=== PATIENT | female | born 1970 | race Hispanic/Latino ===

== ENCOUNTER 2018-01-12 11:35 | Inpatient (IN) | payer BC, MEDICAID ==
[~2018-01-12] VITALS: Ht 157.5 cm; Wt 93.9 kg
[2018-01-12 12:24] LABS: BASOPHILS % (AUTO) 0.5 % (0.0-5.0); EOSINOPHILS % (AUTO) 0.6 % (0.0-8.0); HEMATOCRIT 33.1 % (36-48); LYMPHOCYTES % (AUTO) 9.5 % (21.0-51.0); MEAN CORPUSCULAR HEMOGLOBIN 24.9 pg (27.0-33.0); MEAN CORPUSCULAR HGB CONC 32.7 g/dL (32.0-36.0); MEAN CORPUSCULAR VOLUME 76.2 fL (79-99); MONOCYTES % (AUTO) 6.3 % (3.0-13.0); NEUTROPHILS % (AUTO) 83.1 % (40.0-77.0); PLATELET COUNT (AUTO) 214 K/uL (130-400); RED BLOOD CELL COUNT(AUTO) 4.34 MIL/uL (4.00-5.50); RED CELL DISTRIBUTION WIDTH 15.6 % (11.0-15.5); WHITE BLOOD COUNT (AUTO) 10.9 K/uL (4.8-10.8)
[2018-01-12 12:29] LABS: APPEARANCE,URINE Cloudy (CLEAR); BILIRUBIN,URINE Negative (NEGATIVE); COLOR,URINE Dark Yellow (YELLOW); GLUCOSE, URINE (UA) 250 mg/dL (NEGATIVE); KETONES,URINE Negative (NEGATIVE); LEUKOCYTE ESTERASE ,URINE Trace (NEGATIVE); NITRATE,URINE Negative (NEGATIVE); OCCULT BLOOD,URINE Negative (NEGATIVE); PROTEIN,URINE POS 1+ (NEGATIVE)
[2018-01-12 12:35] LABS: HCG,QUAL RESULT NEGATIVE (NEGATIVE)
[2018-01-12 12:36] LABS: AMPHET/METH SCREEN,URINE NEGATIVE (NEGATIVE); BARBITURATE SCREEN, URINE NEGATIVE (NEGATIVE); BENZODIAZEPINES SCREEN,URINE NEGATIVE (NEGATIVE); CANNABINOID SCREEN,URINE NEGATIVE (NEGATIVE); COCAINE SCREEN,URINE POSITIVE (NEGATIVE); CREATININE 0.7 mg/dL (0.5-1.5); OPIATE SCREEN,URINE NEGATIVE (NEGATIVE); PHENCYCLIDINE SCREEN,URINE NEGATIVE (NEGATIVE); POTASSIUM 3.5 mmol/L (3.5-5.1)
[2018-01-12 12:41] LABS: ALBUMIN 3.7 g/dL (3.5-5.0); BILIRUBIN,TOTAL 1.1 mg/dL (0.2-1.0); TOTAL PROTEIN, SERUM 7.9 g/dL (6.0-8.3)
[2018-01-12 12:50] LABS: BACTERIA,URINE Rare /HPF (None Seen); RBC,URINE 0-1 /HPF (0-1); SQUAMOUS EPITHELIAL CELL,UR Rare /HPF (0-2); WBC,URINE 0-1 /HPF (0-1)
[2018-01-12] MEDS ORDERED: SODIUM CHLORIDE 0.9% 1000ML 1,000 ML IV ONE (13:03)
[2018-01-12] MEDS ORDERED: DICYCLOMINE HCL 10 MG/ML 2ML AMP IM ONE (13:03)
[2018-01-12] MEDS ORDERED: IOHEXOL 350 MG/ML 100ML INFUS..BTL IV ONE (15:53)
[2018-01-12] MEDS ORDERED: ONDANSETRON HCL 4 MG/2 ML VIAL ONE (23:33)
[2018-01-12] MEDS ORDERED: ACETAMINOPHEN-CODEINE 300/30MG TAB ONE (23:33)
[2018-01-13] VITALS (7 sets, daily range): BP systolic 122–136; BP diastolic 59–76
[2018-01-13] MEDS ORDERED: PHARMACY COMMUNICATION MISC SCH (01:45)
[2018-01-13] MEDS ORDERED: SODIUM CHLORIDE 0.9% 10 ML VIAL IVP PRN (01:45)
[2018-01-13] MEDS ORDERED: ONDANSETRON HCL 4 MG/2 ML VIAL IVP PRN (01:45)
[2018-01-13 04:15] LABS: MEAN CORPUSCULAR HEMOGLOBIN 25.2 pg (27.0-33.0); MEAN CORPUSCULAR HGB CONC 33.1 g/dL (32.0-36.0); MEAN CORPUSCULAR VOLUME 76.1 fL (79-99); PLATELET COUNT (AUTO) 199 K/uL (130-400); RED BLOOD CELL COUNT(AUTO) 3.81 MIL/uL (4.00-5.50); RED CELL DISTRIBUTION WIDTH 15.1 % (11.0-15.5); WHITE BLOOD COUNT (AUTO) 6.5 K/uL (4.8-10.8)
[2018-01-13] MEDS ORDERED: LEVO200T10 PO (04:26)
[2018-01-13] MEDS ORDERED: ONDANSETRON HCL MDV 20ML 2 MG/ML VIAL IVP PRN (04:30)
[2018-01-13 04:34] LABS: BILIRUBIN,TOTAL 0.3 mg/dL (0.2-1.0); CREATININE 0.7 mg/dL (0.5-1.5); POTASSIUM 3.3 mmol/L (3.5-5.1); TOTAL PROTEIN, SERUM 6.7 g/dL (6.0-8.3)
[2018-01-13] MEDS ORDERED: MORPHINE SULFATE 2 MG/ML 1ML SYG IM PRN (10:45)
[2018-01-13] MEDS: ACETAMINOPHEN-CODEINE 300/30MG TAB PO PRN (10:54)
[2018-01-13] MEDS ORDERED: LACTULOSE 20 GM/30 ML UDCUP PO PRN (20:30)
[2018-01-14 04:53] VITALS: BP 123/64
[2018-01-14 07:49] VITALS: BP 125/74
[2018-01-14 11:22] VITALS: BP 139/64
[2018-01-14] MEDS ORDERED: PEG 3350/NA SULF,BICARB,CL/KCL 4000 ML SOLN PO SCH (13:00)
[2018-01-14] MEDS ORDERED: METOCLOPRAMIDE 10 MG TABLET PO SCH (14:00)
[2018-01-14 15:53] VITALS: BP 133/64
[2018-01-14] MEDS: LACTATED RINGERS 1000ML 1,000 ML IV SCH (18:00)
[2018-01-14 20:00] VITALS: BP 156/86
[2018-01-14] MEDS ORDERED: ZOLPIDEM TARTRATE 5 MG TAB PO SCH (21:00)
[2018-01-14 23:58] VITALS: BP 127/65
[2018-01-15] VITALS (25 sets, daily range): BP systolic 103–158; BP diastolic 53–83
[2018-01-15 04:34] LABS: BASOPHILS % (AUTO) 0.6 % (0.0-5.0); EOSINOPHILS % (AUTO) 5.3 % (0.0-8.0); HEMATOCRIT 27.2 % (36-48); LYMPHOCYTES % (AUTO) 34.2 % (21.0-51.0); MEAN CORPUSCULAR HEMOGLOBIN 25.1 pg (27.0-33.0); MEAN CORPUSCULAR HGB CONC 33.1 g/dL (32.0-36.0); MEAN CORPUSCULAR VOLUME 75.9 fL (79-99); MONOCYTES % (AUTO) 9.6 % (3.0-13.0); NEUTROPHILS % (AUTO) 50.3 % (40.0-77.0); PLATELET COUNT (AUTO) 223 K/uL (130-400); RED BLOOD CELL COUNT(AUTO) 3.58 MIL/uL (4.00-5.50); WHITE BLOOD COUNT (AUTO) 3.4 K/uL (4.8-10.8)
[2018-01-15 04:48] LABS: CREATININE 0.6 mg/dL (0.5-1.5); POTASSIUM 3.6 mmol/L (3.5-5.1)
[2018-01-15] MEDS: LACTATED RINGERS 1000ML 1,000 ML IV SCH ×3 (11:37→15:47)
[2018-01-15] MEDS ORDERED: GLYCOPYRROLATE 1 MG/5 ML SYRINGE ONE (12:57)
[2018-01-15] MEDS ORDERED: ROCURONIUM 10MG/1ML SYR 10 MG/ML ML ONE (12:57)
[2018-01-15] MEDS ORDERED: DEXAMETHASONE SOD PHOSPHATE 10MG/ML 1ML VIAL ONE (12:57)
[2018-01-15] MEDS ORDERED: LIDOCAINE PF 2% 5ML ABBOJECT ONE (12:57)
[2018-01-15] MEDS ORDERED: NEOSTIGMINE 5MG/5ML SYR IV ONE ×2 (12:57→15:33)
[2018-01-15] MEDS ORDERED: ONDANSETRON HCL 4 MG/2 ML VIAL ONE (12:57)
[2018-01-15] MEDS ORDERED: PROPOFOL 10 MG/ML 20ML VIAL IV ONE (12:57)
[2018-01-15] MEDS ORDERED: FAMOTIDINE/PF 20 MG/2 ML VIAL IV ONE (13:06)
[2018-01-15] MEDS ORDERED: KETAMINE 50MG/ML SYRINGE 50 MG/ML DISP.SYRIN IV ONE (13:07)
[2018-01-15] MEDS ORDERED: ALBUMIN (HUMAN) 5% 500 ML IV ONE (13:08)
[2018-01-15] MEDS ORDERED: MIDAZOLAM HCL 1 MG/ML 2ML VIAL ONE (13:15)
[2018-01-15] MEDS ORDERED: CEFAZOLIN SODIUM 1 GM VIAL ONE (13:24)
[2018-01-15] MEDS ORDERED: FENTANYL CITRATE PF 50 MCG/1 ML 2ML VIAL ONE (13:38)
[2018-01-15] MEDS ORDERED: NEOMY SULF/POLYMYXIN B SULFATE 1 ML AMPUL IR ONE (14:58)
[2018-01-15] MEDS ORDERED: SIMETHICONE 80 MG TAB.CHEW PO PRN (15:45)
[2018-01-15] MEDS ORDERED: BISACODYL 10 MG SUPP.RECT RC PRN (15:45)
[2018-01-15] MEDS ORDERED: HYDROMORPHONE 1 MG/1 ML AMP ONE ×2 (16:05→16:20)
[2018-01-15] MEDS ORDERED: ESTRADIOL 0.1 MG/24 HR PATCH (WEEKLY) TD SCH (18:00)
[2018-01-15] MEDS: CALDOLOR 800MG+NS 250ML 250 ML IV SCH (19:31)
[2018-01-15] MEDS: CEFAZOLIN SODIUM 1 GM VIAL IVP SCH (22:47)
[2018-01-15] MEDS ORDERED: CALDOLOR 800MG+NS 250ML 250 ML IV SCH (23:45)
[2018-01-16] VITALS (7 sets, daily range): BP systolic 139–159; BP diastolic 66–91
[2018-01-16] MEDS ORDERED: HYDROCODONE/ACETAMINOPHEN 7.5/325 MG TAB PO PRN (01:00)
[2018-01-16] MEDS ORDERED: HYDROCODONE/ACETAMINOPHEN 5/325 MG TAB ONE ×2 (01:06→01:07)
[2018-01-16] MEDS: DEXTROSE 5 %-0.45 % NACL 1,000 ML IV PRN ×2 (02:13→03:01)
[2018-01-16] MEDS: MORPHINE SULFATE 2 MG/ML 1ML SYG IVP PRN ×2 (02:56→11:45)
[2018-01-16] MEDS: CALDOLOR 800MG+NS 250ML 250 ML IV SCH ×2 (03:48→11:03)
[2018-01-16] MEDS ORDERED: HYDROCODONE/ACETAMINOPHEN 5/325 MG TAB PO PRN (05:15)
[2018-01-16] MEDS: CEFAZOLIN SODIUM 1 GM VIAL IVP SCH ×3 (06:15→17:31)
[2018-01-16 06:23] LABS: HEMATOCRIT 28.5 % (36-48); MEAN CORPUSCULAR HEMOGLOBIN 24.3 pg (27.0-33.0); MEAN CORPUSCULAR HGB CONC 32.1 g/dL (32.0-36.0); MEAN CORPUSCULAR VOLUME 75.6 fL (79-99); PLATELET COUNT (AUTO) 201 K/uL (130-400); RED BLOOD CELL COUNT(AUTO) 3.77 MIL/uL (4.00-5.50); RED CELL DISTRIBUTION WIDTH 14.7 % (11.0-15.5); WHITE BLOOD COUNT (AUTO) 7.6 K/uL (4.8-10.8)
[2018-01-16] MEDS: DOCUSATE SODIUM 100 MG CAP PO PRN ×2 (08:44→21:02)
[2018-01-16] MEDS ORDERED: BISACODYL 10 MG SUPP.RECT RC PRN (09:30)
[2018-01-16] MEDS ORDERED: DOCUSATE SODIUM 100 MG CAP PO PRN (09:30)
[2018-01-16] MEDS ORDERED: SIMETHICONE 80 MG TAB.CHEW PO PRN (09:30)
[2018-01-16] MEDS: SIMETHICONE 80 MG TAB.CHEW PO PRN ×4 (09:35→21:45)
[2018-01-16] MEDS ORDERED: IBUPROFEN 800 MG TAB PO SCH (15:45)
[2018-01-16] MEDS: IBUPROFEN 800 MG TAB PO SCH (17:30)
[2018-01-16] MEDS ORDERED: ACETAMINOPHEN-CODEINE 300/30MG TAB PO PRN (19:30)
[2018-01-16] MEDS: ACETAMINOPHEN-CODEINE 300/30MG TAB PO PRN (20:11)
[2018-01-17] MEDS: IBUPROFEN 800 MG TAB PO SCH ×2 (01:35→08:06)
[2018-01-17 04:32] VITALS: BP 133/84
[2018-01-17 07:50] VITALS: BP 144/89
[2018-01-17] MEDS: DOCUSATE SODIUM 100 MG CAP PO PRN (08:06)
[2018-01-17] MEDS: SIMETHICONE 80 MG TAB.CHEW PO PRN (08:06)
[2018-01-17 11:32] VITALS: BP 152/89
== END 2018-01-17 13:00 | disposition home or self-care (01) | DRG 513 ==
LOC: EDH 11:35 → EDHIP 11:36 → 4BH 23:52 → WSH 01-15 17:04
PROVIDERS: ADMIT Family Medicine
PROC: 0UT90ZZ Resection of Uterus, Open Approach (ICD-10-PCS; principal; 2018-01-15 13:45)
PROC: 0UT20ZZ Resection of Bilateral Ovaries, Open Approach (ICD-10-PCS; 2018-01-15 13:45)
PROC: 0UT70ZZ Resection of Bilateral Fallopian Tubes, Open Approach (ICD-10-PCS; 2018-01-15 13:45)
PROC: 0JBC0ZZ Excision of Pelvic Region Subcutaneous Tissue and Fascia, Open Approach (ICD-10-PCS; 2018-01-15 13:45)
DX: N80.8 Other endometriosis (principal); E66.9 Obesity, unspecified; D25.9 Leiomyoma of uterus, unspecified; R19.00 Intra-abdominal and pelvic swelling, mass and lump, unspecified site; E03.9 Hypothyroidism, unspecified; K59.00 Constipation, unspecified; Z68.37 Body mass index [BMI] 37.0-37.9, adult
CPT/HCPCS: 36415; 74021; 74178; 80048; 80053; 80305; 81001; 81025; 83690; 85025; 85027; 86850; 86900; 86901; 88307; 93005; A4218; A4344; J0500; J0690; J1100; J1170; J1741; J2001; J2250; J2405; J2704; J2710; J3010; J3490; J7030; J7120; P9045; Q9967